=== PATIENT | male | born 1940 | race Two or more races ===

== ENCOUNTER 2020-12-14 19:37 | Inpatient (IN) | payer BC, OTHER ==
[~2020-12-14] VITALS: Ht 177.8 cm; Wt 133.6 kg
[2020-12-14] MEDS ORDERED: VANCOMYCIN PER PHARMACY 0 MG IV SCH (19:45)
[2020-12-14] MEDS ORDERED: SODIUM CHLORIDE 0.9% 1,000 ML IV ONE (19:45)
[2020-12-14] MEDS ORDERED: VANCOMYCIN 1GM/250ML 250 ML IV ONE (20:00)
[2020-12-14] MEDS ORDERED: LIDOCAINE 1% HCL (LOCAL ANESTH.) INJ 20ML MDV ONE (22:19)
[2020-12-14 22:49] LABS: Hematocrit 43.9 % (41.0-53.0); Hemoglobin 14.6 g/dL (13.5-17.5); Mean Corpuscular Hemoglobin 32.3 pg (28.0-32.0); Mean Corpuscular Hgb Conc. 33.2 g/dL (32.0-36.0); Mean Corpuscular Volume 97.4 fL (80.0-100.0); Red Blood Cells 4.51 10^6/uL (4.5-5.90); White Blood Cell 25.5 10^3/uL (4.4-10.8)
[2020-12-14 22:59] LABS: Basophils % (manual) 0 (0.0-2.0); Blast Cells 0; Eosinophils % (manual) 0 (0-7); Metamyelocytes % 0; Myelocytes % 0; Promyelocytes % 0; Reactive Lymphocytes 0
[2020-12-14 23:07] LABS: Alanine Aminotransferase 31 U/L (16-61); Albumin 2.5 g/dL (3.4-5.0); Anion Gap 7 (5-15); Aspartate Aminotransferase 23 U/L (15-37); BUN/Creatinine Ratio 21.3; Blood Urea Nitrogen 17 mg/dL (7-18); Calcium 7.9 mg/dL (8.5-10.1); Carbon Dioxide 28 mmol/L (21-32); Chloride 101 mmol/L (98-107); GFR African American 120 mL/min; GFR Non-African American 99 mL/min; Glucose 233 mg/dL (74-106); Lipase < 10 U/L (73-393); Potassium 4.1 mmol/L (3.5-5.1); Sodium 136 mmol/L (136-145)
[2020-12-14 23:16] LABS: Alkaline Phosphatase 70 U/L (45-117); Bilirubin, Total 0.6 mg/dL (0.2-1.0); CRP High Sensitivity 8.35 mg/dL (< 0.3); Total Protein 6.4 g/dL (6.4-8.2)
[2020-12-14 23:20] LABS: Band Neutrophils % (manual) 28; Lymphocytes % (manual) 12 (10.0-50.0); Monocytes % (manual) 5 (0-12)
[2020-12-15] MEDS ORDERED: ACETAMINOPHEN 325 MG TAB PO PRN
[2020-12-15] MEDS ORDERED: ONDANSETRON HCL 4 MG/2 ML VIAL IV PRN
[2020-12-15] MEDS ORDERED: DOCUSATE SOD 100 MG CAP PO PRN
[2020-12-15] MEDS ORDERED: ALBUMIN 25% 50 ML IV ONE
[2020-12-15] MEDS ORDERED: DEXTROSE (50%) 50ML SYRG IV PRN
[2020-12-15] MEDS ORDERED: IOHEXOL 350 MG/ML 100ML IJ ONE (00:06)
[2020-12-15] MEDS ORDERED: LIDOCAINE 1% HCL (LOCAL ANESTH.) INJ 20ML MDV ID ONE (02:45)
[2020-12-15] MEDS ORDERED: NITROGLYCERIN 0.4 MG SL TAB SL PRN (02:45)
[2020-12-15] MEDS ORDERED: MORPHINE SULFATE INJECTION 2 MG/ML SYRG IV PRN (02:45)
[2020-12-15] MEDS: SODIUM CHLORIDE 0.9% 1,000 ML IV SCH ×2 (03:16→19:25)
[2020-12-15] MEDS: MORPHINE SULFATE INJECTION 2 MG/ML SYRG IV PRN ×2 (04:41→23:12)
[2020-12-15 04:47] LABS: Basophils # (auto) 0 10 ^3/uL (0-0.2); Basophils % (auto) 0.1 % (0.0-2.0); Eosinophils # (auto) 0 10 ^3/uL (0-0.8); Hemoglobin 15.2 g/dL (13.5-17.5); Lymphocytes # (auto) 1.9 10 ^3/uL (0.4-5.4); Lymphocytes % (auto) 7.9 % (10.0-50.0); Mean Corpuscular Hemoglobin 32.9 pg (28.0-32.0); Mean Corpuscular Hgb Conc. 33.9 g/dL (32.0-36.0); Monocytes # (auto) 1.9 10 ^3/uL (0-1.3); Monocytes % (auto) 7.8 % (0.0-12.0); Neutrophils # (auto) 20.3 10 ^3/uL (1.6-8.6); Neutrophils % (auto) 84.2 % (37.0-80.0); Red Blood Cells 4.64 10^6/uL (4.5-5.90); Red Cell Distribution Width 13.8 % (11.8-14.3); White Blood Cell 24.2 10^3/uL (4.4-10.8)
[2020-12-15 04:56] LABS: INR 1.17 (0.9-1.15); Partial Thromboplastin Time 28.1 sec (23.6-33.0)
[2020-12-15] MEDS ORDERED: INSLISPI SC (05:13)
[2020-12-15] MEDS ORDERED: INSLANTI SC (05:13)
[2020-12-15] MEDS ORDERED: AMLO-496 PO (05:13)
[2020-12-15] MEDS ORDERED: NAP500T PO (05:13)
[2020-12-15] MEDS ORDERED: GLIM4TAB42 PO (05:13)
[2020-12-15] MEDS ORDERED: SIMV-13 PO (05:13)
[2020-12-15] MEDS ORDERED: BENA40TA8 PO (05:13)
[2020-12-15] MEDS ORDERED: METF-372 PO (05:13)
[2020-12-15] MEDS ORDERED: ALLO300T2 PO (05:13)
[2020-12-15 05:38] LABS: Albumin 2.7 g/dL (3.4-5.0); BUN/Creatinine Ratio 23.5; Calcium 8.3 mg/dL (8.5-10.1); Potassium 3.9 mmol/L (3.5-5.1)
[2020-12-15 05:41] LABS: Bilirubin, Total 0.9 mg/dL (0.2-1.0); Total Protein 6.7 g/dL (6.4-8.2)
[2020-12-15] MEDS: ACCU-CHEK COMFORT CURVE STRIP VI SCH ×4 (06:52→22:06)
[2020-12-15] MEDS: InsuLIN REG 1unit/0.01ml Soln (100units/ml) SC SCH ×4 (06:52→22:08)
[2020-12-15 08:30] VITALS: BP 126/75
[2020-12-15] MEDS ORDERED: cefTRIAXone 1GM/50ML D5W 50 ML IV SCH (09:00)
[2020-12-15] MEDS ORDERED: ENOXAPARIN SOD 40 MG/0.4 ML SYRINGE SC SCH (10:00)
[2020-12-15] MEDS: amLODIPine BESYLATE 5 MG TAB PO SCH (10:13)
[2020-12-15] MEDS: FAMOTIDINE (10MG/ML) 2ML VL IV SCH ×2 (10:14→21:31)
[2020-12-15] MEDS: MULTIPLE VITAMIN TAB PO SCH (10:14)
[2020-12-15] MEDS: ASCORBIC ACID 500 MG TAB PO SCH ×2 (10:14→21:31)
[2020-12-15] MEDS: ZINC SULFATE 220mg CAP or TAB PO SCH (10:14)
[2020-12-15] MEDS: HYDROcodone-ACET 5/325MG TAB PO PRN ×2 (10:14→17:51)
[2020-12-15 12:30] VITALS: BP 133/75
[2020-12-15] MEDS: PIPERACILLIN-TAZOB 3.375GM 100 ML IV SCH ×2 (13:27→21:31)
[2020-12-15 16:43] VITALS: BP 137/75
[2020-12-15] MEDS: VANCOMYCIN 1GM/250ML 250 ML IV SCH (17:50)
[2020-12-15 22:00] VITALS: BP 146/79
[2020-12-16] MEDS: MORPHINE SULFATE INJECTION 2 MG/ML SYRG IV PRN ×3 (04:38→20:59)
[2020-12-16] MEDS: PIPERACILLIN-TAZOB 3.375GM 100 ML IV SCH ×3 (04:38→18:13)
[2020-12-16 05:00] VITALS: BP 132/78
[2020-12-16 05:27] LABS: Basophils # (auto) 0.1 10 ^3/uL (0-0.2); Basophils % (auto) 0.4 % (0.0-2.0); Eosinophils # (auto) 0.1 10 ^3/uL (0-0.8); Eosinophils % (auto) 0.4 % (0.0-7.0); Hematocrit 44.8 % (41.0-53.0); Lymphocytes # (auto) 1.4 10 ^3/uL (0.4-5.4); Lymphocytes % (auto) 9.1 % (10.0-50.0); Mean Corpuscular Hemoglobin 32.5 pg (28.0-32.0); Mean Corpuscular Hgb Conc. 33.4 g/dL (32.0-36.0); Mean Corpuscular Volume 97.3 fL (80.0-100.0); Monocytes # (auto) 1.4 10 ^3/uL (0-1.3); Monocytes % (auto) 9.4 % (0.0-12.0); Neutrophils # (auto) 12.1 10 ^3/uL (1.6-8.6); Neutrophils % (auto) 80.7 % (37.0-80.0); Red Cell Distribution Width 14.5 % (11.8-14.3)
[2020-12-16] MEDS: ACCU-CHEK COMFORT CURVE STRIP VI SCH ×4 (06:44→21:38)
[2020-12-16] MEDS: InsuLIN REG 1unit/0.01ml Soln (100units/ml) SC SCH ×5 (06:45→22:55)
[2020-12-16] MEDS: SODIUM CHLORIDE 0.9% 1,000 ML IV SCH (07:09)
[2020-12-16 07:40] LABS: Urine Bacteria NONE SEEN /hpf (None Seen); Urine Blood TRACE /uL (Negative); Urine Specific Gravity 1.031 (1.001-1.035); Urine WBC 3 /hpf (0 - 3)
[2020-12-16 09:00] VITALS: BP 150/70
[2020-12-16] MEDS: MULTIPLE VITAMIN TAB PO SCH (10:00)
[2020-12-16] MEDS ORDERED: CEFTRIAXONE SODIUM 2 GM in D5W 5% 50 ML IV SCH (10:00)
[2020-12-16] MEDS: ZINC SULFATE 220mg CAP or TAB PO SCH (10:00)
[2020-12-16] MEDS: ASCORBIC ACID 500 MG TAB PO SCH ×2 (10:00→21:38)
[2020-12-16] MEDS: FAMOTIDINE (10MG/ML) 2ML VL IV SCH ×2 (10:13→21:38)
[2020-12-16] MEDS: amLODIPine BESYLATE 5 MG TAB PO SCH (10:14)
[2020-12-16] MEDS: VANCOMYCIN 1GM/250ML 250 ML IV SCH (10:15)
[2020-12-16] MEDS ORDERED: ceFAZolin 1GM/50ML 100 ML IV ONE (12:37)
[2020-12-16 13:00] VITALS: BP 144/73
[2020-12-16] MEDS ORDERED: PHENYLEPHRINE HCL 10 MG/ML VL IV ONE (13:15)
[2020-12-16] MEDS ORDERED: BUPIVACAINE 0.5% P/F INJ 10 ML VIAL ONE (13:17)
[2020-12-16] MEDS ORDERED: fentaNYL CITRATE 100 MCG/2 ML VL ONE (13:26)
[2020-12-16] MEDS ORDERED: MIDAZOLAM HCL 2MG/2ML 2ml VIAL (1mg/ml) ONE ×2 (13:26→14:02)
[2020-12-16] MEDS ORDERED: PROPOFOL 10 MG/ML 20 ML IV ONE (14:02)
[2020-12-16] MEDS ORDERED: DexAMETHasone SOD PHOS 10MG/1ML VIAL INJ ONE (14:02)
[2020-12-16] MEDS ORDERED: LABETALOL HCL 5 MG/ML 4ML SYRINGE IV PRN (14:15)
[2020-12-16] MEDS ORDERED: MORPHINE SULFATE 4 MG/ML SYR/VIAL IV PRN (14:15)
[2020-12-16] MEDS ORDERED: ePHEDrine SULFATE 50 MG/ML AMP IV PRN (14:15)
[2020-12-16] MEDS ORDERED: MIDAZOLAM HCL 2MG/2ML 2ml VIAL (1mg/ml) IV PRN (14:15)
[2020-12-16] MEDS ORDERED: hydrALAZINE HCL 20 MG/ML VL IV PRN (14:15)
[2020-12-16] MEDS ORDERED: ONDANSETRON HCL 4 MG/2 ML VIAL IV PRN (14:15)
[2020-12-16] MEDS ORDERED: HYDROmorphone HCL 2 MG/ML VL IV PRN (14:15)
[2020-12-16 17:04] VITALS: BP 165/80
[2020-12-16] MEDS: HYDROcodone-ACET 5/325MG TAB PO PRN (18:39)
[2020-12-16] MEDS ORDERED: INSLANTI SC (20:59)
[2020-12-16 22:00] VITALS: BP 131/68
[2020-12-16] MEDS ORDERED: DEXTROSE (50%) 50ML SYRG IV PRN (22:45)
[2020-12-16] MEDS: INSULIN LANTUS (GLARGINE) 1 /0.01ml (100units/ml) SC SCH (22:56)
[2020-12-17] MEDS: InsuLIN REG 1unit/0.01ml Soln (100units/ml) SC SCH ×6 (00:11→21:20)
[2020-12-17] MEDS: ACCU-CHEK COMFORT CURVE STRIP VI SCH ×6 (00:11→20:22)
[2020-12-17] MEDS: PIPERACILLIN-TAZOB 3.375GM 100 ML IV SCH ×3 (01:15→20:22)
[2020-12-17] MEDS: VANCOMYCIN 1GM/250ML 250 ML IV SCH ×2 (03:54→17:37)
[2020-12-17] MEDS: SODIUM CHLORIDE 0.9% 1,000 ML IV SCH ×2 (04:49→17:58)
[2020-12-17 05:00] VITALS: BP 154/80
[2020-12-17] MEDS: INSULIN LANTUS (GLARGINE) 1 /0.01ml (100units/ml) SC SCH ×2 (05:55→21:21)
[2020-12-17 09:00] VITALS: BP 135/70
[2020-12-17] MEDS: FAMOTIDINE (10MG/ML) 2ML VL IV SCH ×2 (09:35→20:55)
[2020-12-17] MEDS: amLODIPine BESYLATE 5 MG TAB PO SCH (09:36)
[2020-12-17] MEDS: ZINC SULFATE 220mg CAP or TAB PO SCH (09:36)
[2020-12-17] MEDS: ASCORBIC ACID 500 MG TAB PO SCH ×2 (09:36→20:55)
[2020-12-17] MEDS: MULTIPLE VITAMIN TAB PO SCH (09:36)
[2020-12-17] MEDS: HYDROcodone-ACET 5/325MG TAB PO PRN ×2 (09:44→15:05)
[2020-12-17 13:00] VITALS: BP 150/81
[2020-12-17] MEDS: ENOXAPARIN SOD 40 MG/0.4 ML SYRINGE SC SCH (15:05)
[2020-12-17 17:00] VITALS: BP 140/74
[2020-12-17] MEDS: DOCUSATE SOD 100 MG CAP PO SCH (20:55)
[2020-12-17] MEDS: MORPHINE SULFATE INJECTION 2 MG/ML SYRG IV PRN (21:20)
[2020-12-17 22:00] VITALS: BP 156/86
[2020-12-18] MEDS: ACCU-CHEK COMFORT CURVE STRIP VI SCH ×6 (00:48→20:58)
[2020-12-18] MEDS: InsuLIN REG 1unit/0.01ml Soln (100units/ml) SC SCH ×6 (00:58→21:11)
[2020-12-18] MEDS: PIPERACILLIN-TAZOB 3.375GM 100 ML IV SCH ×3 (04:34→20:57)
[2020-12-18 05:00] VITALS: BP 164/77
[2020-12-18] MEDS: INSULIN LANTUS (GLARGINE) 1 /0.01ml (100units/ml) SC SCH ×2 (06:42→21:12)
[2020-12-18] MEDS: VANCOMYCIN 1GM/250ML 250 ML IV SCH ×2 (08:00→22:10)
[2020-12-18 09:00] VITALS: BP 146/80
[2020-12-18] MEDS: ENOXAPARIN SOD 40 MG/0.4 ML SYRINGE SC SCH (09:40)
[2020-12-18] MEDS: amLODIPine BESYLATE 5 MG TAB PO SCH (09:41)
[2020-12-18] MEDS: MULTIPLE VITAMIN TAB PO SCH (09:41)
[2020-12-18] MEDS: ASCORBIC ACID 500 MG TAB PO SCH ×2 (09:41→20:58)
[2020-12-18] MEDS: FAMOTIDINE (10MG/ML) 2ML VL IV SCH ×2 (09:41→20:57)
[2020-12-18] MEDS: ZINC SULFATE 220mg CAP or TAB PO SCH (09:41)
[2020-12-18] MEDS: DOCUSATE SOD 100 MG CAP PO SCH ×2 (09:41→20:58)
[2020-12-18] MEDS: HYDROcodone-ACET 5/325MG TAB PO PRN ×2 (12:15→16:44)
[2020-12-18 13:00] VITALS: BP 146/86
[2020-12-18] MEDS: SODIUM CHLORIDE 0.9% 1,000 ML IV SCH (14:05)
[2020-12-18] MEDS ORDERED: IOHEXOL 350 MG/ML 100ML IJ ONE (16:28)
[2020-12-18 16:58] VITALS: BP 140/73
[2020-12-18 22:00] VITALS: BP 121/77
[2020-12-18 22:28] LABS: Basophils # (auto) 0 10 ^3/uL (0-0.2); Basophils % (auto) 0.4 % (0.0-2.0); Eosinophils # (auto) 0.2 10 ^3/uL (0-0.8); Eosinophils % (auto) 2.5 % (0.0-7.0); Hematocrit 41.9 % (41.0-53.0); Hemoglobin 13.8 g/dL (13.5-17.5); Lymphocytes % (auto) 22.4 % (10.0-50.0); Mean Corpuscular Hemoglobin 32.3 pg (28.0-32.0); Mean Corpuscular Hgb Conc. 32.9 g/dL (32.0-36.0); Mean Corpuscular Volume 98.2 fL (80.0-100.0); Monocytes % (auto) 11.2 % (0.0-12.0); Neutrophils # (auto) 5.8 10 ^3/uL (1.6-8.6); Neutrophils % (auto) 63.5 % (37.0-80.0); Red Blood Cells 4.27 10^6/uL (4.5-5.90); Red Cell Distribution Width 14.1 % (11.8-14.3); White Blood Cell 9.1 10^3/uL (4.4-10.8)
[2020-12-19] MEDS: ACCU-CHEK COMFORT CURVE STRIP VI SCH ×5 (00:14→16:00)
[2020-12-19] MEDS: InsuLIN REG 1unit/0.01ml Soln (100units/ml) SC SCH ×5 (00:15→16:00)
[2020-12-19] MEDS: PIPERACILLIN-TAZOB 3.375GM 100 ML IV SCH ×2 (04:22→12:30)
[2020-12-19 05:00] VITALS: BP 146/83
[2020-12-19] MEDS: SODIUM CHLORIDE 0.9% 1,000 ML IV SCH (06:33)
[2020-12-19] MEDS: INSULIN LANTUS (GLARGINE) 1 /0.01ml (100units/ml) SC SCH (06:34)
[2020-12-19 09:00] VITALS: BP_SYST 124; BP_SYST 127; BP_DIAS 70
[2020-12-19] MEDS ORDERED: VANCOMYCIN 1GM/250ML 250 ML IV SCH (10:00)
[2020-12-19] MEDS: MULTIPLE VITAMIN TAB PO SCH (10:04)
[2020-12-19] MEDS: DOCUSATE SOD 100 MG CAP PO SCH (10:04)
[2020-12-19] MEDS: ZINC SULFATE 220mg CAP or TAB PO SCH (10:04)
[2020-12-19] MEDS: FAMOTIDINE (10MG/ML) 2ML VL IV SCH (10:04)
[2020-12-19] MEDS: ASCORBIC ACID 500 MG TAB PO SCH (10:05)
[2020-12-19] MEDS: ENOXAPARIN SOD 40 MG/0.4 ML SYRINGE SC SCH (10:05)
[2020-12-19] MEDS: amLODIPine BESYLATE 5 MG TAB PO SCH (10:05)
[2020-12-19] MEDS ORDERED: metroNIDAZOLE 500MG/100ML 100 ML IV SCH (11:00)
[2020-12-19 13:00] VITALS: BP 151/71
[2020-12-19 15:21] VITALS: BP 123/67
== END 2020-12-19 16:30 | disposition home health service (06) | DRG 853 ==
LOC: EDBD 19:37 → ER 19:42 → TELE 12-15 02:39 → TELE-CENTR 12-15 05:52
PROVIDERS: ADMIT Nurse Practitioner Family; ATTEND Internal Medicine
PROC: 0S9D3ZX Drainage of Left Knee Joint, Percutaneous Approach, Diagnostic (ICD-10-PCS; 2020-12-14)
PROC: 0JBP0ZZ Excision of Left Lower Leg Subcutaneous Tissue and Fascia, Open Approach (ICD-10-PCS; principal; 2020-12-16 13:29)
DX: A41.9 Sepsis, unspecified organism (principal); J96.01 Acute respiratory failure with hypoxia; L03.116 Cellulitis of left lower limb; L02.416 Cutaneous abscess of left lower limb; Z68.41 Body mass index [BMI] 40.0-44.9, adult; J98.11 Atelectasis; E11.65 Type 2 diabetes mellitus with hyperglycemia; E66.01 Morbid (severe) obesity due to excess calories; Z20.822 Contact with and (suspected) exposure to COVID-19; E11.40 Type 2 diabetes mellitus with diabetic neuropathy, unspecified; I11.0 Hypertensive heart disease with heart failure; I50.9 Heart failure, unspecified; M17.10 Unilateral primary osteoarthritis, unspecified knee; S80.02XA Contusion of left knee, initial encounter; Z79.4 Long term (current) use of insulin; Z98.1 Arthrodesis status; Z80.42 Family history of malignant neoplasm of prostate; Z80.1 Family history of malignant neoplasm of trachea, bronchus and lung; Z80.0 Family history of malignant neoplasm of digestive organs; Z99.3 Dependence on wheelchair
CPT/HCPCS: 20610; 36415; 36600; 71045; 71275; 80053; 80202; 81001; 82565; 82805; 82947; 82962; 83036; 83605; 83690; 84484; 85007; 85025; 85027; 85610; 85652; 85730; 86141; 87040; 87070; 87075; 87077; 87186; 87205; 87426; 89051; 93005; 93971; 96361; 96365; 97110; 97116; 97163; 97530; G0378; J0690; J0696; J1100; J1815; J2001; J2250; J2405; J2543; J2704; J3490; J7060

== ENCOUNTER 2021-01-05 10:42 | Inpatient (IN) | payer BC ==
[~2021-01-05] VITALS: Ht 172.7 cm; Wt 136.0 kg
[~2021-01-05 10:42] MED LIST: ALLO300T2 PO; AMLO-496 PO; BENA40TA8 PO; GLIM4TAB42 PO; INSLANTI SC; INSLISPI SC; METF-372 PO; NAP500T PO; SIMV-13 PO
[2021-01-05 13:17] LABS: Basophils # (auto) 0.1 10 ^3/uL (0-0.2); Basophils % (auto) 0.7 % (0.0-2.0); Eosinophils # (auto) 0 10 ^3/uL (0-0.8); Hematocrit 41.2 % (41.0-53.0); Hemoglobin 13.9 g/dL (13.5-17.5); Lymphocytes # (auto) 1.5 10 ^3/uL (0.4-5.4); Lymphocytes % (auto) 7.8 % (10.0-50.0); Mean Corpuscular Hemoglobin 32.1 pg (28.0-32.0); Mean Corpuscular Hgb Conc. 33.6 g/dL (32.0-36.0); Mean Corpuscular Volume 95.4 fL (80.0-100.0); Monocytes # (auto) 1.3 10 ^3/uL (0-1.3); Monocytes % (auto) 6.6 % (0.0-12.0); Neutrophils # (auto) 16.6 10 ^3/uL (1.6-8.6); Neutrophils % (auto) 84.9 % (37.0-80.0); Red Blood Cells 4.32 10^6/uL (4.5-5.90); Red Cell Distribution Width 13.8 % (11.8-14.3); White Blood Cell 19.5 10^3/uL (4.4-10.8)
[2021-01-05 13:35] LABS: Alanine Aminotransferase 29 U/L (16-61); Albumin 2.5 g/dL (3.4-5.0); Anion Gap 3 (5-15); Blood Urea Nitrogen 13 mg/dL (7-18); Calcium 9.3 mg/dL (8.5-10.1); Carbon Dioxide 34 mmol/L (21-32); Chloride 98 mmol/L (98-107); Glucose 247 mg/dL (74-106); Potassium 4.1 mmol/L (3.5-5.1); Sodium 135 mmol/L (136-145)
[2021-01-05 13:40] LABS: Alkaline Phosphatase 78 U/L (45-117); Aspartate Aminotransferase 18 U/L (15-37); BUN/Creatinine Ratio 18.8; Bilirubin, Total 0.7 mg/dL (0.2-1.0); GFR African American 142 mL/min; GFR Non-African American 118 mL/min; Total Protein 7.8 g/dL (6.4-8.2)
[2021-01-05] MEDS ORDERED: cefTRIAXone 1GM/50ML D5W 50 ML IV ONE (15:15)
[2021-01-05] MEDS ORDERED: SODIUM CHLORIDE 0.9% 1,000 ML IV ONE (16:30)
[2021-01-05] MEDS ORDERED: HYDROcodone-ACET 5/325MG TAB PO ONE (16:30)
[2021-01-05] MEDS ORDERED: DOCUSATE SOD 100 MG CAP PO PRN (19:00)
[2021-01-05] MEDS ORDERED: ONDANSETRON HCL 4 MG/2 ML VIAL IV PRN (19:00)
[2021-01-05] MEDS ORDERED: MORPHINE SULFATE INJECTION 2 MG/ML SYRG IV PRN ×2 (19:00)
[2021-01-05] MEDS ORDERED: NITROGLYCERIN 0.4 MG SL TAB SL PRN (19:00)
[2021-01-05] MEDS ORDERED: VANCOMYCIN PER PHARMACY 0 MG IV SCH (19:00)
[2021-01-05] MEDS ORDERED: hydrALAZINE HCL 20 MG/ML VL IV PRN (19:00)
[2021-01-05] MEDS ORDERED: ACETAMINOPHEN 500 MG TAB PO PRN (19:00)
[2021-01-05] MEDS: VANCOMYCIN 1GM/250ML 250 ML IV SCH (21:11)
[2021-01-06] MEDS ORDERED: DEXTROSE (50%) 50ML SYRG IV PRN (02:00)
[2021-01-06 02:05] VITALS: BP 140/79
[2021-01-06 05:30] LABS: Basophils # (auto) 0 10 ^3/uL (0-0.2); Basophils % (auto) 0.2 % (0.0-2.0); Eosinophils # (auto) 0 10 ^3/uL (0-0.8); Hematocrit 39.7 % (41.0-53.0); Hemoglobin 13.4 g/dL (13.5-17.5); Lymphocytes # (auto) 1.8 10 ^3/uL (0.4-5.4); Lymphocytes % (auto) 7.7 % (10.0-50.0); Mean Corpuscular Hemoglobin 32.3 pg (28.0-32.0); Mean Corpuscular Hgb Conc. 33.8 g/dL (32.0-36.0); Mean Corpuscular Volume 95.5 fL (80.0-100.0); Monocytes # (auto) 1.7 10 ^3/uL (0-1.3); Monocytes % (auto) 7.3 % (0.0-12.0); Neutrophils # (auto) 19.5 10 ^3/uL (1.6-8.6); Neutrophils % (auto) 84.8 % (37.0-80.0); Red Blood Cells 4.15 10^6/uL (4.5-5.90); Red Cell Distribution Width 13.8 % (11.8-14.3); White Blood Cell 22.9 10^3/uL (4.4-10.8)
[2021-01-06 05:56] LABS: Potassium 3.9 mmol/L (3.5-5.1)
[2021-01-06 06:08] LABS: Albumin 2.3 g/dL (3.4-5.0); Bilirubin, Total 0.8 mg/dL (0.2-1.0); Calcium 8.8 mg/dL (8.5-10.1); Total Protein 7.2 g/dL (6.4-8.2)
[2021-01-06] MEDS: ACCU-CHEK COMFORT CURVE STRIP VI SCH ×4 (06:21→22:20)
[2021-01-06] MEDS: InsuLIN REG 1unit/0.01ml Soln (100units/ml) SC SCH ×4 (06:28→22:19)
[2021-01-06 09:00] VITALS: BP 128/60
[2021-01-06] MEDS: VANCOMYCIN 1GM/250ML 250 ML IV SCH ×2 (09:00→22:07)
[2021-01-06] MEDS: HYDROcodone-ACET 5/325MG TAB PO PRN ×2 (09:15→17:00)
[2021-01-06] MEDS: BENAZEPRIL HCL 10 MG TAB PO SCH (09:35)
[2021-01-06] MEDS: amLODIPine BESYLATE 5 MG TAB PO SCH (09:36)
[2021-01-06] MEDS: ENOXAPARIN SOD 40 MG/0.4 ML SYRINGE SC SCH (09:46)
[2021-01-06] MEDS ORDERED: PANTOPRAZOLE 40 MG TAB PO SCH (10:00)
[2021-01-06 13:00] VITALS: BP 114/68
[2021-01-06 17:00] VITALS: BP 138/59
[2021-01-06 22:00] VITALS: BP 129/59
[2021-01-07 05:00] VITALS: BP 126/62
[2021-01-07] MEDS: HYDROcodone-ACET 5/325MG TAB PO PRN ×3 (05:20→20:28)
[2021-01-07] MEDS: ACCU-CHEK COMFORT CURVE STRIP VI SCH ×4 (06:25→21:56)
[2021-01-07] MEDS: InsuLIN REG 1unit/0.01ml Soln (100units/ml) SC SCH ×4 (06:26→21:55)
[2021-01-07 09:00] VITALS: BP 125/66
[2021-01-07] MEDS: VANCOMYCIN 1GM/250ML 250 ML IV SCH ×2 (09:00→20:30)
[2021-01-07] MEDS: BENAZEPRIL HCL 10 MG TAB PO SCH (09:22)
[2021-01-07] MEDS: ENOXAPARIN SOD 40 MG/0.4 ML SYRINGE SC SCH ×2 (09:22→12:47)
[2021-01-07] MEDS: amLODIPine BESYLATE 5 MG TAB PO SCH (09:22)
[2021-01-07 12:30] VITALS: BP 150/72
[2021-01-07 16:30] VITALS: BP 161/88
[2021-01-07 18:19] VITALS: BP 135/67
[2021-01-07] MEDS: INSULIN LANTUS (GLARGINE) 1 /0.01ml (100units/ml) SC SCH (21:56)
[2021-01-07 22:00] VITALS: BP 139/60
[2021-01-08] MEDS: HYDROcodone-ACET 5/325MG TAB PO PRN ×5 (02:28→22:44)
[2021-01-08 05:00] VITALS: BP 118/57
[2021-01-08] MEDS: VANCOMYCIN 1GM/250ML 250 ML IV SCH ×2 (05:49→16:01)
[2021-01-08] MEDS: ACCU-CHEK COMFORT CURVE STRIP VI SCH ×4 (06:03→22:35)
[2021-01-08] MEDS: InsuLIN REG 1unit/0.01ml Soln (100units/ml) SC SCH ×4 (06:04→22:44)
[2021-01-08 09:00] VITALS: BP 148/82
[2021-01-08] MEDS: cefTRIAXone 1GM/50ML D5W 50 ML IV SCH (09:00)
[2021-01-08] MEDS: BENAZEPRIL HCL 10 MG TAB PO SCH (09:43)
[2021-01-08] MEDS: amLODIPine BESYLATE 5 MG TAB PO SCH (09:43)
[2021-01-08] MEDS: ENOXAPARIN SOD 40 MG/0.4 ML SYRINGE SC SCH (09:46)
[2021-01-08 11:49] LABS: Basophils # (auto) 0.1 10 ^3/uL (0-0.2); Basophils % (auto) 0.6 % (0.0-2.0); Eosinophils # (auto) 0.2 10 ^3/uL (0-0.8); Eosinophils % (auto) 1.5 % (0.0-7.0); Hematocrit 39.7 % (41.0-53.0); Hemoglobin 13.4 g/dL (13.5-17.5); Lymphocytes # (auto) 1.6 10 ^3/uL (0.4-5.4); Mean Corpuscular Hemoglobin 32.3 pg (28.0-32.0); Mean Corpuscular Hgb Conc. 33.7 g/dL (32.0-36.0); Mean Corpuscular Volume 95.9 fL (80.0-100.0); Monocytes # (auto) 1.2 10 ^3/uL (0-1.3); Monocytes % (auto) 10.9 % (0.0-12.0); Neutrophils # (auto) 7.7 10 ^3/uL (1.6-8.6); Nucleated Red Blood Cells % 0.1 %; Red Blood Cells 4.14 10^6/uL (4.5-5.90); Red Cell Distribution Width 13.6 % (11.8-14.3); White Blood Cell 10.7 10^3/uL (4.4-10.8)
[2021-01-08 12:05] LABS: BUN/Creatinine Ratio 31.6; Calcium 8.9 mg/dL (8.5-10.1); Potassium 4.2 mmol/L (3.5-5.1)
[2021-01-08 13:00] VITALS: BP 106/59
[2021-01-08 17:00] VITALS: BP 135/64
[2021-01-08 22:00] VITALS: BP 129/78
[2021-01-08] MEDS: INSULIN LANTUS (GLARGINE) 1 /0.01ml (100units/ml) SC SCH (22:54)
[2021-01-09] MEDS: VANCOMYCIN 1GM/250ML 250 ML IV SCH ×3 (01:56→21:42)
[2021-01-09 05:00] VITALS: BP 138/69
[2021-01-09] MEDS: ACCU-CHEK COMFORT CURVE STRIP VI SCH ×4 (06:28→21:32)
[2021-01-09] MEDS: InsuLIN REG 1unit/0.01ml Soln (100units/ml) SC SCH ×4 (06:32→21:41)
[2021-01-09] MEDS: HYDROcodone-ACET 5/325MG TAB PO PRN ×3 (08:15→21:42)
[2021-01-09 09:00] VITALS: BP 179/78
[2021-01-09] MEDS: cefTRIAXone 1GM/50ML D5W 50 ML IV SCH (09:23)
[2021-01-09] MEDS: BENAZEPRIL HCL 10 MG TAB PO SCH (09:24)
[2021-01-09] MEDS: amLODIPine BESYLATE 5 MG TAB PO SCH (09:24)
[2021-01-09] MEDS: ENOXAPARIN SOD 40 MG/0.4 ML SYRINGE SC SCH (09:25)
[2021-01-09 13:00] VITALS: BP 114/69
[2021-01-09] MEDS ORDERED: GADOTERATE MEG 10 MMOL/20ml INJ (0.5MMOL/ml) IV ONE (13:02)
[2021-01-09 16:50] VITALS: BP 135/74
[2021-01-09] MEDS: INSULIN LANTUS (GLARGINE) 1 /0.01ml (100units/ml) SC SCH (21:43)
[2021-01-09 22:00] VITALS: BP 147/79
[2021-01-10] MEDS: ACCU-CHEK COMFORT CURVE STRIP VI SCH ×2 (06:27→11:30)
[2021-01-10] MEDS: InsuLIN REG 1unit/0.01ml Soln (100units/ml) SC SCH ×2 (06:32→12:18)
[2021-01-10 08:30] VITALS: BP 129/76
[2021-01-10] MEDS: VANCOMYCIN 1GM/250ML 250 ML IV SCH (08:30)
[2021-01-10] MEDS: amLODIPine BESYLATE 5 MG TAB PO SCH (09:14)
[2021-01-10] MEDS: BENAZEPRIL HCL 10 MG TAB PO SCH (09:14)
[2021-01-10] MEDS: cefTRIAXone 1GM/50ML D5W 50 ML IV SCH (09:15)
[2021-01-10] MEDS: HYDROcodone-ACET 5/325MG TAB PO PRN ×2 (09:15→15:20)
[2021-01-10] MEDS: ENOXAPARIN SOD 40 MG/0.4 ML SYRINGE SC SCH (09:15)
[2021-01-10 13:00] VITALS: BP 146/70
[2021-01-10 14:13] VITALS: BP 129/76
== END 2021-01-10 16:00 | disposition home health service (06) | DRG 603 ==
LOC: EDBD 10:42 → ER 10:44 → TELE 18:46 → TELE-WESTW 23:16
PROVIDERS: ADMIT Nurse Practitioner Acute Care; ATTEND Internal Medicine
PROC: 0S9D3ZZ Drainage of Left Knee Joint, Percutaneous Approach (ICD-10-PCS; principal; 2021-01-07)
DX: L03.116 Cellulitis of left lower limb (principal); N39.0 Urinary tract infection, site not specified; J96.10 Chronic respiratory failure, unspecified whether with hypoxia or hypercapnia; Z68.42 Body mass index [BMI] 45.0-49.9, adult; E11.65 Type 2 diabetes mellitus with hyperglycemia; E66.01 Morbid (severe) obesity due to excess calories; S80.02XA Contusion of left knee, initial encounter; W18.39XA Other fall on same level, initial encounter; E78.5 Hyperlipidemia, unspecified; M17.0 Bilateral primary osteoarthritis of knee; Z88.5 Allergy status to narcotic agent; I10 Essential (primary) hypertension; Z79.4 Long term (current) use of insulin; Z80.0 Family history of malignant neoplasm of digestive organs; Z80.1 Family history of malignant neoplasm of trachea, bronchus and lung; Z80.42 Family history of malignant neoplasm of prostate; Y93.89 Activity, other specified; Y92.89 Other specified places as the place of occurrence of the external cause; Y99.8 Other external cause status
CPT/HCPCS: 36415; 71045; 73700; 73722; 76942; 80048; 80053; 80202; 82962; 83605; 84484; 85025; 85652; 87040; 87081; 87205; 87426; 89051; 93005; 93926; 96365; 97110; 97163; 97530; C1729; G0378; J0696; J1815

== ENCOUNTER 2022-04-06 14:21 | Inpatient (IN) | payer BC ==
[~2022-04-06] VITALS: Ht 177.8 cm; Wt 136.4 kg
[2022-04-06 15:28] LABS: Albumin 2.4 g/dL (3.4-5.0); BUN/Creatinine Ratio 29.9; Bilirubin, Total 0.3 mg/dL (0.2-1.0); Calcium 9.8 mg/dL (8.5-10.1); Total Protein 7.8 g/dL (6.4-8.2)
[2022-04-06 15:40] LABS: Potassium 5.8 mmol/L (3.5-5.1)
[2022-04-06 17:08] LABS: Basophils # (auto) 0 10 ^3/uL (0-0.2); Basophils % (auto) 0.4 % (0.0-2.0); Eosinophils # (auto) 0 10 ^3/uL (0-0.8); Eosinophils % (auto) 0.4 % (0.0-7.0); Hematocrit 38.8 % (41.0-53.0); Hemoglobin 12.5 g/dL (13.5-17.5); Lymphocytes # (auto) 1.8 10 ^3/uL (0.4-5.4); Lymphocytes % (auto) 18.5 % (10.0-50.0); Mean Corpuscular Hemoglobin 30.7 pg (28.0-32.0); Mean Corpuscular Hgb Conc. 32.1 g/dL (32.0-36.0); Mean Corpuscular Volume 95.6 fL (80.0-100.0); Monocytes # (auto) 0.9 10 ^3/uL (0-1.3); Monocytes % (auto) 9.6 % (0.0-12.0); Neutrophils # (auto) 6.9 10 ^3/uL (1.6-8.6); Neutrophils % (auto) 71.1 % (37.0-80.0); Nucleated Red Blood Cells % 0.1 %; Red Blood Cells 4.06 10^6/uL (4.5-5.90); Red Cell Distribution Width 13.2 % (11.8-14.3); White Blood Cell 9.7 10^3/uL (4.4-10.8)
[2022-04-06] MEDS ORDERED: HYDROcodone-ACET 7.5/325MG TAB PO ONE (18:15)
[2022-04-06] MEDS ORDERED: BELLADONNA ALKAL/OPIUM (16.2/30MG) RECT SUPP PR ONE (19:45)
[2022-04-06] MEDS ORDERED: CALCIUM GLUC 1,000mg/50ml-NS 50 ML IV ONE (21:00)
[2022-04-06] MEDS ORDERED: SODIUM BICARBONATE 8.4 % INJ 50ML VIAL IV ONE (21:00)
[2022-04-06 21:09] LABS: Urine Blood 3+ /uL (Negative)
[2022-04-06] MEDS ORDERED: ONDANSETRON HCL 4 MG/2 ML VIAL IV PRN (21:45)
[2022-04-06] MEDS ORDERED: cefTRIAXone 1GM/50ML D5W 50 ML IV ONE (21:45)
[2022-04-06] MEDS ORDERED: DEXTROSE (50%) 50ML SYRG IV PRN (21:45)
[2022-04-06] MEDS ORDERED: SODIUM ZIRCONIUM CYCL 10 GM PAK PO ONE (21:45)
[2022-04-06 22:32] LABS: Hematocrit 37.6 % (41.0-53.0); Hemoglobin 12.3 g/dL (13.5-17.5)
[2022-04-06 22:50] LABS: INR 1.13 (0.9-1.15); Partial Thromboplastin Time 29.9 sec (24.6-33.4)
[2022-04-06] MEDS: SODIUM CHLORIDE 0.9% 1,000 ML IV SCH (23:03)
[2022-04-07] MEDS: ACCU-CHEK COMFORT CURVE STRIP VI SCH ×4 (00:24→18:00)
[2022-04-07] MEDS: InsuLIN REG 1unit/0.01ml Soln (100units/ml) SC SCH ×4 (00:25→17:05)
[2022-04-07 03:53] LABS: Basophils # (auto) 0 10 ^3/uL (0-0.2); Basophils % (auto) 0.2 % (0.0-2.0); Eosinophils # (auto) 0.1 10 ^3/uL (0-0.8); Hematocrit 35.7 % (41.0-53.0); Hemoglobin 11.7 g/dL (13.5-17.5); Lymphocytes # (auto) 2.2 10 ^3/uL (0.4-5.4); Lymphocytes % (auto) 25.6 % (10.0-50.0); Mean Corpuscular Hgb Conc. 32.8 g/dL (32.0-36.0); Mean Corpuscular Volume 94.5 fL (80.0-100.0); Monocytes % (auto) 12.4 % (0.0-12.0); Neutrophils # (auto) 5.1 10 ^3/uL (1.6-8.6); Neutrophils % (auto) 60.8 % (37.0-80.0); Red Blood Cells 3.78 10^6/uL (4.5-5.90); Red Cell Distribution Width 12.8 % (11.8-14.3); White Blood Cell 8.4 10^3/uL (4.4-10.8)
[2022-04-07 04:12] LABS: Calcium 9.2 mg/dL (8.5-10.1)
[2022-04-07 04:15] LABS: Albumin 2.1 g/dL (3.4-5.0); BUN/Creatinine Ratio 34.3
[2022-04-07 04:17] LABS: Bilirubin, Total 0.3 mg/dL (0.2-1.0)
[2022-04-07] MEDS: cefTRIAXone 1GM/50ML D5W 50 ML IV SCH (09:30)
[2022-04-07] MEDS: SODIUM CHLORIDE 0.9% 1,000 ML IV SCH (11:05)
[2022-04-07] MEDS: PANTOPRAZOLE 40 MG/10 ML VIAL INJ IV SCH (11:37)
[2022-04-07] MEDS ORDERED: KETAMINE 50mg/ML 10ml Vial (500mg/10ml) IV ONE (12:20)
[2022-04-07] MEDS ORDERED: CIPROFLOXACIN 400MG/200ML 200 ML IV ONE (14:44)
[2022-04-07] MEDS ORDERED: BUPIVACAINE 0.5% P/F INJ 10 ML VIAL ONE (14:51)
[2022-04-07] MEDS ORDERED: fentaNYL CITRATE 100 MCG/2 ML VL ONE (14:53)
[2022-04-07] MEDS ORDERED: MIDAZOLAM HCL 2MG/2ML 2ml VIAL (1mg/ml) ONE (14:53)
[2022-04-07] MEDS ORDERED: GLYCOPYRROLATE 0.2 MG/ML 1ML VIAL ONE (14:55)
[2022-04-07] MEDS ORDERED: ONDANSETRON HCL 4 MG/2 ML VIAL ONE (14:55)
[2022-04-07 15:00] VITALS: BP 141/84
[2022-04-07] MEDS ORDERED: TAMS1CAP25 PO (15:08)
[2022-04-07] MEDS ORDERED: BELLADONNA ALKAL/OPIUM (16.2/30MG) RECT SUPP PR ONE (16:45)
[2022-04-07] MEDS ORDERED: HYDROmorphone HCL 2 MG/ML VL/or syr IV PRN (17:00)
[2022-04-07] MEDS ORDERED: ONDANSETRON HCL 4 MG/2 ML VIAL IV PRN (17:00)
[2022-04-07] MEDS ORDERED: ACCU-CHEK COMFORT CURVE STRIP VI ONE (17:00)
[2022-04-07 19:13] LABS: BUN/Creatinine Ratio 23.3; Calcium 9.6 mg/dL (8.5-10.1); Potassium 4.9 mmol/L (3.5-5.1)
[2022-04-07 20:00] VITALS: BP 129/52
[2022-04-07 22:00] VITALS: BP 129/52
[2022-04-08] MEDS: ACCU-CHEK COMFORT CURVE STRIP VI SCH ×5 (00:29→21:23)
[2022-04-08] MEDS: InsuLIN REG 1unit/0.01ml Soln (100units/ml) SC SCH ×5 (00:32→21:24)
[2022-04-08] MEDS: HYDROcodone-ACET 5/325MG TAB PO PRN ×3 (01:09→16:13)
[2022-04-08 05:00] VITALS: BP 130/54
[2022-04-08] MEDS: SODIUM CHLORIDE 0.9% 1,000 ML IV SCH ×2 (05:23→16:30)
[2022-04-08 08:00] VITALS: BP 133/72
[2022-04-08 08:41] VITALS: BP 133/72
[2022-04-08] MEDS: PANTOPRAZOLE 40 MG/10 ML VIAL INJ IV SCH (10:07)
[2022-04-08] MEDS: cefTRIAXone 1GM/50ML D5W 50 ML IV SCH (10:07)
[2022-04-08] MEDS: FINASTERIDE 5 MG TAB PO SCH (10:08)
[2022-04-08 13:00] VITALS: BP 126/77
[2022-04-08] MEDS: CIPROFLOXACIN HCL 500 MG TAB PO SCH (21:22)
[2022-04-08 22:00] VITALS: BP 130/52
[2022-04-09 05:00] VITALS: BP 182/68
[2022-04-09] MEDS: SODIUM CHLORIDE 0.9% 1,000 ML IV SCH ×2 (05:11→17:00)
[2022-04-09] MEDS: ACCU-CHEK COMFORT CURVE STRIP VI SCH ×2 (07:01→11:33)
[2022-04-09] MEDS: InsuLIN REG 1unit/0.01ml Soln (100units/ml) SC SCH ×2 (07:02→11:37)
[2022-04-09] MEDS ORDERED: hydrALAZINE HCL 20 MG/ML VL IV PRN (08:00)
[2022-04-09 08:51] VITALS: BP 167/72
[2022-04-09] MEDS ORDERED: amLODIPine BESYLATE 5 MG TAB PO SCH (10:00)
[2022-04-09] MEDS ORDERED: BENAZEPRIL HCL 10 MG TAB PO SCH (10:00)
[2022-04-09] MEDS: FINASTERIDE 5 MG TAB PO SCH (10:10)
[2022-04-09] MEDS: CIPROFLOXACIN HCL 500 MG TAB PO SCH (10:10)
[2022-04-09 12:47] VITALS: BP 133/69
[2022-04-09] MEDS ORDERED: FIN5T PO (14:38)
[2022-04-09] MEDS: HYDROcodone-ACET 5/325MG TAB PO PRN (14:52)
[2022-04-09 16:38] VITALS: BP 148/81
== END 2022-04-09 12:00 | disposition home health service (06) | DRG 713 ==
LOC: EDBD 14:21 → ER 14:21 → OVERFLOW 21:45 → CENTRAL 04-07 13:30
PROVIDERS: ADMIT Nurse Practitioner; ATTEND Internal Medicine
PROC: 0TBB8ZX Excision of Bladder, Via Natural or Artificial Opening Endoscopic, Diagnostic (ICD-10-PCS; principal; 2022-04-07 15:04)
PROC: 0VB08ZZ Excision of Prostate, Via Natural or Artificial Opening Endoscopic (ICD-10-PCS; 2022-04-07 15:04)
PROC: 0TCB8ZZ Extirpation of Matter from Bladder, Via Natural or Artificial Opening Endoscopic (ICD-10-PCS; 2022-04-07 15:04)
DX: N40.1 Benign prostatic hyperplasia with lower urinary tract symptoms (principal); N17.0 Acute kidney failure with tubular necrosis; E44.1 Mild protein-calorie malnutrition; Z68.41 Body mass index [BMI] 40.0-44.9, adult; N13.6 Pyonephrosis; R31.0 Gross hematuria; N32.0 Bladder-neck obstruction; E11.9 Type 2 diabetes mellitus without complications; E87.5 Hyperkalemia; I10 Essential (primary) hypertension; E66.01 Morbid (severe) obesity due to excess calories; R33.8 Other retention of urine; E78.5 Hyperlipidemia, unspecified; Z20.822 Contact with and (suspected) exposure to COVID-19; Z88.6 Allergy status to analgesic agent
CPT/HCPCS: 36415; 71045; 74176; 80048; 80053; 81003; 82962; 84132; 85014; 85018; 85025; 85610; 85730; 86850; 86900; 86901; 87426; 96361; 96365; 96366; 96367; 96375; C9113; G0378; J0696; J1815; J2250; J2405; J3490

== ENCOUNTER 2022-05-24 14:28 | Emergency (ER) | payer BC ==
[~2022-05-24] VITALS: Ht 177.8 cm; Wt 145.4 kg
[~2022-05-24 14:28] MED LIST changes: +FIN5T PO; -NAP500T PO; +TAMS1CAP25 PO
[2022-05-24 15:49] LABS: Basophils # (auto) 0 10 ^3/uL (0-0.2); Basophils % (auto) 0.3 % (0.0-2.0); Eosinophils # (auto) 0 10 ^3/uL (0-0.8); Eosinophils % (auto) 0.3 % (0.0-7.0); Hemoglobin 13.7 g/dL (13.5-17.5); Lymphocytes # (auto) 1.8 10 ^3/uL (0.4-5.4); Lymphocytes % (auto) 17.9 % (10.0-50.0); Mean Corpuscular Hgb Conc. 32.6 g/dL (32.0-36.0); Monocytes # (auto) 0.5 10 ^3/uL (0-1.3); Monocytes % (auto) 5.1 % (0.0-12.0); Neutrophils # (auto) 7.6 10 ^3/uL (1.6-8.6); Neutrophils % (auto) 76.4 % (37.0-80.0); Red Blood Cells 4.42 10^6/uL (4.5-5.90); Red Cell Distribution Width 13.4 % (11.8-14.3)
[2022-05-24 15:59] LABS: Albumin 3.3 g/dL (3.4-5.0); BUN/Creatinine Ratio 21.9; Calcium 9.9 mg/dL (8.5-10.1); Potassium 4.5 mmol/L (3.5-5.1)
[2022-05-24 16:13] LABS: Bilirubin, Total 0.4 mg/dL (0.2-1.0); Total Protein 7.1 g/dL (6.4-8.2)
[2022-05-25 08:00] VITALS: BP 159/77
== END 2022-05-25 10:38 | disposition home or self-care (01) ==
LOC: EDBD 14:28 → ER 14:28
DX: R33.9 Retention of urine, unspecified (principal); E11.65 Type 2 diabetes mellitus with hyperglycemia; E78.5 Hyperlipidemia, unspecified; Z90.49 Acquired absence of other specified parts of digestive tract; Z90.89 Acquired absence of other organs; Z79.899 Other long term (current) drug therapy; Z88.5 Allergy status to narcotic agent
CPT/HCPCS: 36415; 71045; 80053; 82962; 83880; 84484; 85025